=== PATIENT | female | born 2000 | race Caucasian/White ===

== ENCOUNTER 2020-05-03 17:03 | Emergency (ER) | payer MEDICAID ==
[~2020-05-03] VITALS: Ht 180.3 cm; Wt 100.0 kg
[2020-05-03] MEDS ORDERED: AZITHROMYCIN 500 MG TABLET PO ONE (18:15)
[2020-05-03] MEDS ORDERED: CEFTRIAXONE SODIUM 250 MG/VIAL IM ONE (18:15)
[2020-05-03 18:43] VITALS: BP 161/80
[2020-05-03 18:54] LABS: CLARITY URINE CLOUDY (CLEAR); COLOR URINE YELLOW (YELLOW); KETONES URINE NEGATIVE (NEGATIVE); LEUKOCYTE ESTERASE URINE 3+ (NEGATIVE); NITRITE URINE NEGATIVE (NEGATIVE); OCCULT BLOOD URINE 1+ (NEGATIVE); PH URINE 5.5 (4.5-8.0); PROTEIN URINE TRACE (NEGATIVE); SPECIFIC GRAVITY URINE 1.021 (1.005-1.030); UROBILINOGEN URINE 0.2 E.U./dL (0.2-1.0)
== END 2020-05-03 18:45 | disposition home or self-care (01) ==
LOC: ER 17:03
DX: Z20.2 Contact with and (suspected) exposure to infections with a predominantly sexual mode of transmission (principal)
CPT/HCPCS: 81003; 87086; 96372; 99283; J0696